=== PATIENT | male | born 1990 | race Two or more races ===

== ENCOUNTER 2023-09-22 10:26 | Emergency (ER) | payer OTHER ==
[2023-09-22 10:45] VITALS: BP 184/103; O2SAT 97
--- NOTE | 2023-09-22 11:10 | ED Physician Documentation ---
PD HPI BACK PAIN - Stated complaint Stated Complaint: BACK PX - Chief complaint Chief Complaint: Back Pain - History obtained from History obtained from: Patient - Additional information Additional information: Patient is a 33-year-old with low back pain for the past 2 weeks. Patient states that the pain is in the low back and started a few weeks ago after sitting on a cushion while driving his mother's car and it seemed to make him sit lopsided. 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 He states that over the last week the pain has been worse. The pain is most when he is trying to get up out of bed. He states that bending movements make the pain worse. He feels better if he is standing up straight or lying down straight.He has tried a dose of Tylenol and IcyHot without any improvement. Has not tried other anti-inflammatories. Denies fall or other injury. No numbness or weakness into lower extremities. Denies saddle anesthesia. No history of cancer, blood thinner use, IV drug use. No bowel or bladder incontinence. Patient reports he did not feel he was able to go to work this morning and thus is also presented to the emergency department for evaluation. Review of Systems Constitutional: denies: Fever Cardiac: denies: Chest pain / pressure Respiratory: denies: Dyspnea GI: denies: Abdominal Pain : denies: Dysuria Musculoskeletal: reports: Back pain PD PAST MEDICAL HISTORY - Past Medical History Past Medical History: Yes Cardiovascular: None Respiratory: Asthma Neuro: None Endocrine/Autoimmune: None GI: None : None HEENT: None Psych: None Musculoskeletal: None Derm: None - Past Surgical History Past Surgical History: No - Present Medications Home Medications: Ambulatory Orders Medication Instructions Recorded Confirmed Cyclobenzaprine [Flexeril] 10 mg PO TID PRN #20 tablet 09/22/23 Ibuprofen [Motrin] 800 mg PO Q8H PRN #30 tablet 09/22/23 Lidocaine Patch 5% [Lidoderm Patch] 1 patch TOP DAILY PRN #10 patch 09/22/23 Testosterone Cypionate 180 mg IM Q7D 09/22/23 09/22/23 [Depo-Testosterone] - Allergies Allergies/Adverse Reactions: Allergies Allergy/AdvReac Type Severity Reaction Status Date / Time No Known Drug Allergies Allergy Verified 09/22/23 10:32 - Social History Does the pt smoke?: No Smoking Status: Former smoker Does the pt drink ETOH?: Yes Does the pt have substance abuse?: Yes Substance Use and Type: Marijuana - Immunizations Immunizations are current?: Yes - POLST Patient has POLST: No PD ED PE NORMAL - General General: Alert and oriented X 3, No acute distress, Well developed/nourished - HEENT HEENT: Atraumatic, Moist mucous membranes, Pharynx benign - Neck Neck: Supple, no meningeal sign - Cardiac Cardiac: RRR, Strong equal pulses - Respiratory Respiratory: No respiratory distress, Clear bilaterally - Abdomen Abdomen: Soft, Non tender, Non distended - Back Back: No spinal TTP - Derm Derm: Warm and dry - Extremities Extremities: No deformity, No edema, No calf tenderness / cord, Other (Normal strength in bilateral hip flexion, knee extension and flexion, ankle dorsiflexion and plantarflexion; Ambulating here without difficulty) - Neuro Neuro: Alert and oriented X 3, No motor deficit, No sensory deficit, Normal speech Results - Vitals Vitals: Vital Signs - 24 hr 09/22/23 10:33 Temperature 36.2 C L Heart Rate 93 Respiratory 18 Rate Blood Pressure 184/103 H O2 Saturation 97 Oxygen O2 Source Room air PD Medical Decision Making - ED course ED course: Patient with atraumatic low back pain. No signs or symptoms to suggest cord compression, cauda equina, epidural abscess or hematoma. He is ambulatory here without any difficulty. Do not feel x-rays would be beneficial as there is no reports of any trauma. Discussed trial of this medication to include anti- inflammatories, lidocaine patches and a muscle relaxer as he does report it feels stiff in his back. Patient also counseled on need for close follow-up with primary care provider regarding his back pain. He is blood pressure was also noted to be elevated here today. He is also asymptomatic from this standpoint and was advised to have it rechecked in the next 1 to 2 weeks as he may need further evaluation or treatment for this. Patient advised on concerning symptoms to return for. Departure - Departure Disposition: 01 Home, Self Care Clinical Impression: Low back pain, Elevated blood pressure reading Condition: Stable Instructions: ED Hypertension Poss, ED Neck Back Pain General Follow-Up: [facility] [Provider Group] [facility] [Provider Group] Prescriptions: Cyclobenzaprine [Flexeril] 10 mg PO TID PRN #20 tablet PRN Reason: Spasms Lidocaine Patch 5% [Lidoderm Patch] 1 patch TOP DAILY PRN #10 patch PRN Reason: pain Ibuprofen [Motrin] 800 mg PO Q8H PRN #30 tablet PRN Reason: PAIN &/OR FEVER Comments: You need close follow-up for your back pain. I have sent prescriptions to [facility] in [place] which includes a muscle relaxer which you should not drive if you are taking, and anti-inflammatory and lidocaine patches. I have included information for the local walk-in clinic as well as primary care office. You may need to check with your insurance to see where you are able to establish primary care with. Your blood pressure was also elevated today. You should have recheck for your blood pressure in the next 1 to 2 weeks to see if you need further treatment for this. Return to the ER with any worsening symptoms. Forms: PCP List, Activity restrictions Discharge Date/Time: 09/22/23 12:04
[2023-09-22] MEDS: ACETAMINOPHEN 500 MG TABLET PO STA (11:54)
[2023-09-22] MEDS: LIDOCAINE PATCH 5% TOP STA (11:55)
== END 2023-09-22 12:04 | disposition home or self-care (01) ==
LOC: EDBD → ED 10:26
DX: M54.50 Low back pain, unspecified (principal); R03.0 Elevated blood-pressure reading, without diagnosis of hypertension; Z87.891 Personal history of nicotine dependence
CPT/HCPCS: 99282; 99283; A9270

== ENCOUNTER 2023-10-31 08:45 | Outpatient (CLI) | payer OTHER ==
--- NOTE | 2023-10-31 15:55 | XRAY Report ---
PROCEDURE: Chest 2V INDICATIONS: DYSPNEA, UNSPECIFIED TECHNIQUE: 2 views of the chest were acquired. COMPARISON: None. FINDINGS: Surgical changes and devices: None. Lungs and pleura: Moderate diffuse interstitial lung disease. No pleural effusions. Mediastinum: Mildly enlarged heart. Bones and chest wall: Unremarkable IMPRESSION: Moderate diffuse interstitial lung disease may be infectious or inflammatory. Further recommendations are provided on CT. Reviewed by: Sheldon Cabrera MD on 10/31/2023 3:54 PM PDT Approved by: Sheldon Cabrera MD on 10/31/2023 3:54 PM PDT Station ID: [id number]
== END 2023-10-31 09:00 | disposition home or self-care (01) ==
LOC: DI.N 08:45
PROVIDERS: ATTEND Physician Assistant
DX: J84.9 Interstitial pulmonary disease, unspecified (principal)

== ENCOUNTER 2023-10-31 09:00 | Outpatient (CLI) | payer OTHER ==
[2023-10-31 12:31] LABS: BASOPHILS # (AUTO) 0.1 10^3/uL (0.0-0.1); BASOPHILS % (AUTO) 0.9 %; EOSINOPHILS # (AUTO) 0.1 10^3/uL (0.0-0.7); EOSINOPHILS % (AUTO) 0.8 %; HCT - HEMATOCRIT 55.6 % (42.0-52.0); HGB - HEMOGLOBIN 16.6 g/dL (14.0-18.0); LYMPHOCYTES # (AUTO) 1.8 10^3/uL (1.5-3.5); LYMPHOCYTES % (AUTO) 16.7 %; MEAN CORPUSCULAR HEMOGLOBIN 24.1 pg (27.0-31.0); MEAN CORPUSCULAR HGB CONC 29.9 g/dL (32.0-36.0); MEAN CORPUSCULAR VOLUME 80.7 fL (80.0-94.0); MEAN PLATELET VOLUME 11.1 fL (7.4-11.4); MONOCYTES # (AUTO) 0.9 10^3/uL (0.0-1.0); MONOCYTES % (AUTO) 8.5 %; NEUTROPHILS # (AUTO) 7.7 10^3/uL (1.5-6.6); NEUTROPHILS % (AUTO) 72.4 %; NRBC ABSOLUTE COUNT (AUTO) 0.03 x10^3/uL; NUCLEATED RED BLOOD CELLS AUTO 0.3 /100WBC; PLT - PLATELET COUNT 259 10^3/uL (130-450); RED BLOOD COUNT 6.89 10^6/uL (4.70-6.10); RED CELL DISTRIBUTION WIDTH 17.1 % (12.0-15.0); WHITE BLOOD COUNT 10.6 x10^3/uL (4.8-10.8)
[2023-10-31 12:49] LABS: ALBUMIN 4.3 g/dL (3.2-5.5); ALBUMIN/GLOBULIN RATIO 1.5 (1.0-2.2); CALCIUM 9.4 mg/dL (8.5-10.3); CREATININE 1.3 mg/dL (0.6-1.3); POTASSIUM 4.2 mmol/L (3.5-4.5); TOTAL PROTEIN 7.2 g/dL (6.4-8.9)
== END 2023-10-31 09:15 | disposition home or self-care (01) ==
LOC: LAB.N 09:00
PROVIDERS: ATTEND Physician Assistant
DX: R06.00 Dyspnea, unspecified (principal)
CPT/HCPCS: 36415; 80053; 81599; 83880; 84484; 85025

== ENCOUNTER 2023-10-31 13:54 | Emergency (ER) | payer OTHER ==
[2023-10-31 14:10] LABS: BASOPHILS # (AUTO) 0.1 10^3/uL (0.0-0.1); BASOPHILS % (AUTO) 1.2 %; EOSINOPHILS # (AUTO) 0.1 10^3/uL (0.0-0.7); EOSINOPHILS % (AUTO) 0.9 %; HCT - HEMATOCRIT 53.6 % (42.0-52.0); HGB - HEMOGLOBIN 16.2 g/dL (14.0-18.0); LYMPHOCYTES # (AUTO) 1.6 10^3/uL (1.5-3.5); MEAN CORPUSCULAR HEMOGLOBIN 24.4 pg (27.0-31.0); MEAN CORPUSCULAR HGB CONC 30.2 g/dL (32.0-36.0); MEAN CORPUSCULAR VOLUME 80.8 fL (80.0-94.0); MEAN PLATELET VOLUME 11.2 fL (7.4-11.4); MONOCYTES % (AUTO) 8.6 %; NEUTROPHILS # (AUTO) 8.7 10^3/uL (1.5-6.6); NEUTROPHILS % (AUTO) 74.8 %; NRBC ABSOLUTE COUNT (AUTO) 0.04 x10^3/uL; NUCLEATED RED BLOOD CELLS AUTO 0.3 /100WBC; PLT - PLATELET COUNT 262 10^3/uL (130-450); RED BLOOD COUNT 6.63 10^6/uL (4.70-6.10); WHITE BLOOD COUNT 11.6 x10^3/uL (4.8-10.8)
[2023-10-31 14:23] LABS: ALBUMIN 4.2 g/dL (3.2-5.5); ALBUMIN/GLOBULIN RATIO 1.4 (1.0-2.2); CALCIUM 9.5 mg/dL (8.5-10.3); CREATININE 1.5 mg/dL (0.6-1.3); POTASSIUM 4.1 mmol/L (3.5-4.5); TOTAL PROTEIN 7.2 g/dL (6.4-8.9)
[2023-10-31 14:30] LABS: TROPONIN I HIGH SENSITIVITY 52.6 ng/L (2.3-19.7)
--- NOTE | 2023-10-31 14:34 | ED Physician Documentation ---
PD HPI DYSPNEA - Stated complaint Stated Complaint: SOA/COUGH - Chief complaint Chief Complaint: Resp - History obtained from History obtained from: Patient - History of Present Illness Pain level max: 0 Pain level now: 0 Inciting event(s): No: Out of meds, URI, Allergic rxn/anaphylaxis Associated symptoms: Cough. No: Fever, Wheezing - Additional information Additional information: Patient is a 33-year-old male who presents to the emergency department complaining of dyspnea for the past several weeks. He states he has had some cough and congestion. No fevers. Went to the walk-in clinic today where they did a troponin and found it to be mildly elevated. He states he is not having any chest pain. He states he does have hypertension. He does not smoke. Does not vape. No fevers. No wheezing. He states that he is on testosterone replacement therapy. Review of Systems Constitutional: denies: Fever, Chills Throat: denies: Sore throat Cardiac: denies: Palpitations Respiratory: denies: Wheezing GI: denies: Nausea, Vomiting, Diarrhea Skin: denies: Rash Musculoskeletal: denies: Neck pain, Back pain Neurologic: denies: Headache PD PAST MEDICAL HISTORY - Past Medical History Past Medical History: Yes Cardiovascular: None Respiratory: Asthma Neuro: None Endocrine/Autoimmune: None GI: None : None HEENT: None Psych: None Musculoskeletal: None Derm: None - Past Surgical History Past Surgical History: No - Present Medications Home Medications: Ambulatory Orders Medication Instructions Recorded Confirmed Albuterol Sulf [Ventolin Hfa 1 - 2 puffs INH Q4HR PRN #1 each 10/31/23 Inhaler] predniSONE [Deltasone] 10 mg PO [id number] #42 tab 10/31/23 - Allergies Allergies/Adverse Reactions: Allergies Allergy/AdvReac Type Severity Reaction Status Date / Time No Known Drug Allergies Allergy Verified 10/31/23 13:57 - Social History Does the pt smoke?: No Smoking Status: Never smoker Does the pt drink ETOH?: Yes Does the pt have substance abuse?: Yes - Immunizations Immunizations are current?: Yes - POLST Patient has POLST: No PD ED PE NORMAL - Vitals Vital signs reviewed: Yes - General General: Alert and oriented X 3, No acute distress - HEENT HEENT: Moist mucous membranes - Neck Neck: Supple, no meningeal sign - Cardiac Cardiac: RRR, Strong equal pulses - Respiratory Respiratory: No respiratory distress, Clear bilaterally - Abdomen Abdomen: Soft, Non tender, Non distended - Derm Derm: Warm and dry - Extremities Extremities: No edema, No calf tenderness / cord - Neuro Neuro: Alert and oriented X 3 - Psych Psych: Normal mood, Normal affect Results - Vitals Vitals: Vital Signs - 24 hr 10/31/23 10/31/23 10/31/23 13:57 14:00 14:30 Temperature 36.5 C Heart Rate 100 90 91 Respiratory 16 26 H 28 H Rate Blood Pressure 180/100 H 133/97 H 133/97 H O2 Saturation 97 97 91 L 10/31/23 10/31/23 10/31/23 15:04 15:30 16:00 Temperature Heart Rate 87 88 96 Respiratory 24 16 19 Rate Blood Pressure 133/97 H 163/88 H 137/103 H O2 Saturation 96 96 91 L 10/31/23 10/31/23 10/31/23 16:14 16:30 17:20 Temperature 36.7 C Heart Rate 79 92 89 Respiratory 16 26 H 16 Rate Blood Pressure 131/115 H 145/96 H O2 Saturation 93 95 Oxygen O2 Source Room air - EKG (time done) 1439 EKG releavant findings:: EKG personally interpreted by author of this note. Relevant findings are: Rate: Rate (enter#) (92) Rhythm: NSR Santo: Normal Intervals: Normal NE QRS: LVH Ischemia: T wave inversion (II, III, aVF) - Labs Labs: Laboratory Tests 10/31/23 10/31/23 10/31/23 14:04 14:04 16:18 WBC 11.6 H RBC 6.63 H Hgb 16.2 Hct 53.6 H MCV 80.8 MCH 24.4 L MCHC 30.2 L RDW 17.0 H Plt Count 262 MPV 11.2 Neut # (Auto) 8.7 H Lymph # (Auto) 1.6 Troup # (Auto) 1.0 Eos # (Auto) 0.1 Baso # (Auto) 0.1 Absolute Nucleated RBC 0.04 Nucleated RBC % 0.3 Sodium 137 Potassium 4.1 Chloride 104 Carbon Dioxide 28 Anion Gap 5.0 L BUN 24 H Creatinine 1.5 H Estimated GFR (MDRD) 53 L Glucose 93 Calcium 9.5 Total Bilirubin 1.0 AST 27 ALT 46 Alkaline Phosphatase 58 Troponin I High Sens 52.6 H* 45.3 H* Total Protein 7.2 Albumin 4.2 Globulin 3.0 Albumin/Globulin Ratio 1.4 Lipase 17 - Rads (name of study) CT pulmonary angiogram Relevant Findings:: Final report received, See rad report PD Medical Decision Making - ED course Complexity details: reviewed results, re-evaluated patient, considered differential (No ST elevation PR, no aortic dissection, no PE, no tension pneumo thorax, no aortic aneurysm), d/w patient ED course: Patient is a 33-year-old male with a cough and dyspnea. He is on testosterone replacement therapy and states that he has a history of polycythemia. CT pulmonary angiogram was performed to rule out PE. This is negative. Suspect that he has a chronic mildly elevated high-sensitivity troponin. His repeat troponins show downtrending. He has not had any chest pain or chest tightness. His dyspnea resolved with a breathing treatment here. Will prescribe an inhaler for home. Will have him follow-up with his PCP for further care. PCP may consider an echocardiogram and/or cardiac stress test. Patient counseled regarding signs and symptoms for which I believe and urgent re-evaluation would be necessary. Patient with good understanding of and agreement to plan and is comfortable going home at this time This document was made in part using voice recognition software. While efforts are made to proofread this document, sound alike and grammatical errors may occur. Departure - Departure Disposition: 01 Home, Self Care Clinical Impression: Viral URI, Elevated troponin Condition: Good Instructions: ED Viral Syndrome Follow-Up: your,doctor in 1 week [Other] Prescriptions: Albuterol Sulf [Ventolin Hfa Inhaler] 1 - 2 puffs INH Q4HR PRN #1 each PRN Reason: Shortness Of Air/Wheezing predniSONE [Deltasone] 10 mg PO [id number] #42 tab Comments: Your prescriptions were sent to [facility] in [place]. Please follow-up with your doctor for further care. Your CT scan does not show any acute abnormalities. Your troponin is mildly elevated, but is going down. I suspect this is a chronic troponin leak. It is important to follow-up with your doctor for an echocardiogram. Your CT scan does not show any evidence of aortic dissection or pulmonary embolus. Please return if you worsen. You do have some enlarged lymph node nodes in your chest as well, it is recommended that you have a high-resolution CT chest after your symptoms have improved likely over the next 2 to 3 weeks. This can be ordered by your doctor. EXAM: [id number] CT/CHTANG (14560) PROCEDURE: Angio Chest INDICATIONS: dyspnea CONTRAST: 80ml omni 300 TECHNIQUE: After the administration of intravenous contrast, 2 mm axial images were acquired from the pulmonary apices to the posterior costophrenic angles during the arterial phase. In addition, 1 mm lung kernel and 5 mm soft tissue kernel reconstructions were performed. 3-dimensional coronal oblique maximum intensity projection (MIP) reformats, 8 mm axial MIP, and 5 mm coronal and sagittal MPR reformats were then performed through the thorax. For radiation dose reduction, the following was used: automated exposure control, adjustment of mA and/or kV according to patient size. COMPARISON: None. FINDINGS: Image quality: Diagnostic Lungs and pleura:Diffuse groundglass opacities and possible areas of air trapping. No pleural effusions. No peripheral fibrotic changes. There are pulmonary nodules, most prominent at the left apex measuring 11 mm. 8/80 Mediastinum, heart, and esophagus: No acute pulmonary embolism. Mildly patulous distal esophagus. There are prominent mediastinal lymph nodes, for example prevascular node measures 1 cm in short axis (4/25). Heart size is borderline enlarged. Chest wall and thyroid: Unremarkable Upper abdomen: No gross abnormality on these arterial phase images Bones: No acute or suspicious osseous finding. IMPRESSION: Diffuse possibly infectious or inflammatory groundglass opacities in the lungs. No pleural effusions. Superimposed regional pulmonary parenchymal lucencies are suggestive of air trapping, most commonly due to chronic small airways disease. An underlying interstitial lung disease is possible. There are pulmonary nodules, most notably 1.1 cm nodule at the left apex subpleural region (8/80). Indeterminate borderline enlarged mediastinal lymph nodes, possibly reactive. Recommend short interval follow-up with high-resolution protocol chest CT following a trial of clinical treatment No acute pulmonary embolism. Forms: PCP List Discharge Date/Time: 10/31/23 17:21
[2023-10-31] MEDS ORDERED: iohexoL-300 100 ML VIAL ONE ×2 (14:38→15:00)
[2023-10-31] MEDS: iohexoL-300 100 ML VIAL IVP ONE (15:35)
--- NOTE | 2023-10-31 15:52 | CT Report ---
PROCEDURE: Angio Chest INDICATIONS: dyspnea CONTRAST: 80ml omni 300 TECHNIQUE: After the administration of intravenous contrast, 2 mm axial images were acquired from the pulmonary apices to the posterior costophrenic angles during the arterial phase. In addition, 1 mm lung kernel and 5 mm soft tissue kernel reconstructions were performed. 3-dimensional coronal oblique maximum int ensity projection (MIP) reformats, 8 mm axial MIP, and 5 mm coronal and sagittal MPR reformats were t hen performed through the thorax. For radiation dose reduction, the following was used: automated exp osure control, adjustment of mA and/or kV according to patient size. COMPARISON: None. FINDINGS: Image quality: Diagnostic Lungs and pleura:Diffuse groundglass opacities and possible areas of air trapping. No pleural effusio ns. No peripheral fibrotic changes. There are pulmonary nodules, most prominent at the left apex gorge uring 11 mm. Mediastinum, heart, and esophagus: No acute pulmonary embolism. Mildly patulous distal esophagus. There are prominent mediastinal lymph nodes, for example prevascula r node measures 1 cm in short axis (10/29). Heart size is borderline enlarged. Chest wall and thyroid: Unremarkable Upper abdomen: No gross abnormality on these arterial phase images Bones: No acute or suspicious osseous finding. IMPRESSION: Diffuse possibly infectious or inflammatory groundglass opacities in the lungs. No pleural effusions. Superimposed regional pulmonary parenchymal lucencies are suggestive of air trapping, most commonly due to chronic small airways disease. An underlying interstitial lung disease is possible. There are pulmonary nodules, most notably 1.1 cm nodule at the left apex subpleural region (). Indeterminate borderline enlarged mediastinal lymph nodes, possibly reactive. Recommend short interval follow-up with high-resolution protocol chest CT following a trial of clinic al treatment No acute pulmonary embolism. Reviewed by: Sheldon Cabrera MD on 10/31/2023 3:51 PM PDT Approved by: Sheldon Cabrera MD on 10/31/2023 3:51 PM PDT Station ID: [id number]
[2023-10-31] MEDS: IPRATROPIUM/ALBUTEROL 3 ML NEB INH STA (16:09)
[2023-10-31] MEDS: predniSONE 20 MG TABLET PO STA (16:27)
[2023-10-31 17:24] VITALS: BP 145/96; O2SAT 95
== END 2023-10-31 17:21 | disposition home or self-care (01) ==
LOC: ED 13:54
DX: R79.89 Other specified abnormal findings of blood chemistry (principal); J06.9 Acute upper respiratory infection, unspecified; R59.0 Localized enlarged lymph nodes; R06.00 Dyspnea, unspecified; J84.9 Interstitial pulmonary disease, unspecified
CPT/HCPCS: 36415; 71046; 71275; 80053; 82553; 83690; 83880; 84484; 85025; 93005; 94640; 99284; J7512; Q9967; 81599

== ENCOUNTER 2024-03-17 15:20 | Outpatient (CLI) | payer OTHER ==
--- NOTE | 2024-03-17 16:00 | Sleep Patient Instructions ---
Sleep Center Visit Summary - Patient Visit Information Reason for Visit: Initial consult for evaluation of sleep disordered breathing and other sleep issues. - Patient Instructions Instructions Attached: Sleep Study Home Monitor, Sleep Study Additional Instructions: You will be completing a sleep study, either an in-lab polysomnography (PSG) or home sleep study (HST). You will follow-up in the sleep care office after the sleep study is completed to hear the results and talk about therapy, if needed. You will be called by our office staff to schedule this appointment, but you may contact us with any questions. - Clinic Information Contact: [facility] [address] [place] [id number] [email or web address] T: [phone]
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
[2024-03-17 16:14] VITALS: BP 192/126; O2SAT 91
== END 2024-03-17 15:21 | disposition home or self-care (01) ==
LOC: SC 15:20
PROVIDERS: ATTEND Nurse Practitioner Family
DX: G47.8 Other sleep disorders (principal); R06.83 Snoring; G47.10 Hypersomnia, unspecified; R06.81 Apnea, not elsewhere classified; I11.0 Hypertensive heart disease with heart failure; I50.9 Heart failure, unspecified; E66.01 Morbid (severe) obesity due to excess calories; Z68.43 Body mass index [BMI] 50.0-59.9, adult; Z87.891 Personal history of nicotine dependence
CPT/HCPCS: 99203; 99212